=== PATIENT | female | born 1965 | race Caucasian/White ===

== ENCOUNTER 2023-04-21 23:52 | Emergency (ER) | payer OTHER, SELFPAY ==
[2023-04-22] VITALS (13 sets, daily range): BP systolic 142–155; BP diastolic 86–90; PULSE 93–105; RESP 7–22; TEMP 36.7; O2SAT 97–100; BMI 34.5
--- NOTE | 2023-04-22 00:37 | CT_ITS ---
[address] [address] Patient Name: LIZBETH ALEJANDRE MRN: [id number] date: 1965 Sex: F Assigned Patient Location: ER Current Patient Location: .[facility] Accession/Order Number: [id number] Exam Date: 04/22/2023 00:00 Report Date: 04/22/2023 01:16 At the request of: REINIER ALBARRAN Procedure: CT head/brain wo con INDICATION: 57 years old; Female. Vertigo. Nausea. Left arm is tingly . TECHNIQUE: CT Head (ax/cor/sag reformats). Ionizing radiation dose reduced via iterative reconstruction/FBP blend and body size kV/mA adjustment. Comparison: None FINDINGS: POSTOPERATIVE CHANGES: None. BRAIN PARENCHYMA: No focal lesions. No mass effect. No midline shift or herniation. No intraparenchymal or extra-axial hemorrhage. Normal singh/white differentiation. VENTRICLES/EXTRA-AXIAL SPACES: Normal for patient's age. SINUSES/MASTOIDS: The visualized sinuses are clear. Mastoid air cells are clear. MSK: No displaced or depressed calvarial fracture is noted. OTHER: No hyperdense intraluminal thrombus is seen. Vascular calcification is noted. There is a partially empty sella. CT/CT head/brain wo con IMPRESSION: 1. No acute intracranial abnormality. No hemorrhage or mass effect. If there is concern for infarction, then MRI with diffusion imaging would be more sensitive. 2. Vascular calcification. Electronically authenticated by: CONNIE SHANNON Date: 04/22/2023 01:16
--- NOTE | 2023-04-22 00:37 | ECG_ITS ---
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
--- NOTE | 2023-04-22 00:46 | ED.DIZZY1 ---
HPI - Dizziness General Chief Complaint: Dizziness Stated Complaint: DIZINESS Time Seen by Provider: 04/22/23 00:14 Source: patient Mode of arrival: Wheelchair Limitations: no limitations History of Present Illness HPI Narrative: The patient has a history of hypertension as well as hyperlipidemia presenting to us with a few hours history of sense of dizziness and room spinning that started before she went to sleep although when laying down the patient mentioned that the dizziness got worse and according to her she started feeling of the room spinning when she was asleep. The patient needed help to get out of the bed and walk because she was dizzy she also started having numbness and tingling in left hand, there was no chest pain at any time there was no sweating there was no any other preceding symptoms and the symptoms started while she was at rest No headache at any time, Related Data Home Medications Medication Instructions Recorded Confirmed lisinopril 5 mg tablet mg 04/22/23 simvastatin 20 mg tablet mg 04/22/23 Previous Rx's Medication Instructions Recorded meclizine 25 mg tablet 25 mg PO TID PRN dizziness #10 tabs 04/22/23 Allergies Allergy/AdvReac Type Severity Reaction Status Date / Time Sulfa (Sulfonamide Allergy Unknown Verified 04/22/23 00:44 Antibiotics) quinalones Allergy Unknown Uncoded 04/22/23 00:44 Review of Systems ROS Status of ROS 10 or more systems reviewed and unremarkable except as noted in history and below [facility] Social History Smoking status: Never smoker Exam Narrative Exam Narrative: Nurses notes and vital signs reviewed and patient is not hypoxic. General: Well-appearing and in no apparent distress. Skin: Warm, dry, no pallor noted. No rash. Head: Normocephalic, atraumatic. Neck: Supple, non-tender. Eye: Pupils are equal, round and EOMI. No scleral icterus. Ears, Nose, Mouth, and Throat: TM are clear, no nasal mucosal hypertrophy. Oral mucosa is moist, no posterior oropharynx erythema, uvula is mid-line Cardiovascular: Regular Rate and Rhythm without murmur, gallop or rub. Respiratory: No accessory muscle use or respiratory distress. Lungs are clear to auscultation, no wheezing, rales or rhonchi Chest Wall: no tenderness Back: No midline thoracic or lumbar vertebral tenderness. No CVA tenderness Musculoskeletal: normal ROM, no calf or popliteal tenderness, no lower extremity edema/swelling GI: Abdomen is soft, non-distended. Normal bowel sounds. No masses appreciated. No tenderness to palpation. No rebound, guarding, or rigidity noted. Neurological: A&O x4. No cranial nerve dysfunction observed. No truncal ataxia. Moves all extremities. Sensation intact. Psychiatric: Cooperative and interactive. Normal mood and affect. Constitutional Vital Signs, click to edit/add: Last Vital Signs Temp 98.1 F 04/22/23 00:35 Pulse 94 H 04/22/23 01:30 Resp 13 04/22/23 01:30 BP 142/90 H 04/22/23 01:32 Pulse Ox 100 04/22/23 01:30 O2 Del Method Room Air 04/22/23 00:48 Course Vital Signs Vital signs: Vital Signs Pulse Rate 101 H 04/22/23 00:27 Respiratory Rate 7 L 04/22/23 00:27 Blood Pressure 155/86 H 04/22/23 00:27 Pulse Oximetry 100 04/22/23 00:27 Temperature 98.1 F 04/22/23 00:35 Pulse Rate 94 H 04/22/23 01:30 Respiratory Rate 13 04/22/23 01:30 Blood Pressure 142/90 H 04/22/23 01:32 Pulse Oximetry 100 04/22/23 01:30 Oxygen Delivery Method Room Air 04/22/23 00:48 MDM - Dizziness MDM Narrative Medical decision making narrative: The EKG showing sinus rhythm with a heart rate of [address] elevation, there was no T wave inversion or any acute ischemic changes The patient CT head as well as the rest of her blood work-up showed no acute significant pathology except for the elevated BUN She was feeling much better in the ED after she was treated with meclizine and the patient was discharged home after the troponin the second set was negative The patient was discharged home with meclizine prescription in addition to hydration at the instruction and monitoring her symptoms, she is to come back to the ER in case of continuous symptoms after 2 days The patient is to follow up with primary care physician in next 2-3 days or to return to the emergency department should any of the signs or symptoms worsen or new symptoms develop. The patient agrees with the following Diagnosis and Treatment plan and the patient will be discharged home. Lab Data Labs: Lab Results 04/22/23 Range/Units 00:55 WBC 10.1 (4.0-11.0) 10^3/uL RBC 4.35 (4.20-5.40) 10^6/uL Hgb 13.2 (12.0-16.0) g/dL Hct 40.1 (36.0-48.0) % MCV 92.2 (81.0-99.0) fL MCH 30.3 (26.7-34.0) pg MCHC 32.9 (29.9-35.2) g/dL RDW 13.2 (11.0-15.0) % Plt Count 289 (150-450) 10^3/uL MPV 9.1 L (9.5-13.5) fL Neut % (Auto) 45.1 (43.0-75.0) % Lymph % (Auto) 41.8 (20.5-60.0) % Angelina % (Auto) 10.8 (1.7-12.0) % Eos % (Auto) 1.5 (0.9-7.0) % Baso % (Auto) 0.6 (0.2-2.0) % Neut # (Auto) 4.5 (1.4-6.5) 10^3/uL Lymph # (Auto) 4.2 H (1.2-3.8) 10^3/uL Angelina # (Auto) 1.1 H (0.3-0.8) 10^3/uL Eos # (Auto) 0.2 (0.0-0.7) 10^3/uL Baso # (Auto) 0.1 (0.0-0.1) 10^3/uL Abs Immat Gran (auto) 0.02 (0.00-0.03) 10^3/uL Imm/Tot Granulo (auto) 0.2 (0.0-0.5) % PT 9.9 (9.0-11.6) sec INR 0.93 Sodium 141 (136-145) mmol/L Potassium 3.8 (3.5-5.1) mmol/L Chloride 105 (98-107) mmol/L Carbon Dioxide 29.9 (21.0-32.0) mmol/L Anion Gap 9.9 BUN 19.0 H (7.0-18.0) mg/dL Creatinine 0.82 (0.55-1.02) mg/dL Est GFR ( Amer) >60 (>=60) Est GFR (Non-Af Amer) >60 (>=60) BUN/Creatinine Ratio 23.2 Glucose 153 H (74-106) mg/dL Calcium 9.0 (8.5-10.1) mg/dL Total Bilirubin 0.3 (0.2-1.0) mg/dL AST 16 (15-37) U/L ALT 26 (14-59) U/L Alkaline Phosphatase 74 (46-116) U/L Troponin I High Sens <4.0 L (4.0-51.3) pg/mL Total Protein 7.9 (6.4-8.2) g/dL Albumin 3.6 (3.4-5.0) g/dL Globulin 4.3 g/dL Albumin/Globulin Ratio 0.8 Discharge Plan Discharge Chief Complaint: Dizziness Clinical Impression: Vertigo Patient Disposition: Home, Self-Care Condition: Good Mode of Transportation: Private Vehicle Prescriptions / Home Meds: New meclizine 25 mg tablet 25 mg PO TID PRN (Reason: dizziness) Qty: 10 0RF No Action simvastatin 20 mg tablet lisinopril 5 mg tablet Instructions: Benign Paroxysmal Positional Vertigo (ED) Stand Alone Forms: Portal Instructions Referrals: Matthew Ness MD [Primary Care Provider] - 1 week
[2023-04-22 01:05] LABS: Basophils Absolute Auto 0.1 10^3/uL (0.0-0.1); Basophils Percent Auto 0.6 % (0.2-2.0); Eosinophils Absolute Auto 0.2 10^3/uL (0.0-0.7); Eosinophils Percent Auto 1.5 % (0.9-7.0); Hematocrit 40.1 % (36.0-48.0); Hemoglobin 13.2 g/dL (12.0-16.0); Immature Granulocytes Abs Auto 0.02 10^3/uL (0.00-0.03); Immature Granulocytes Pct Auto 0.2 % (0.0-0.5); Lymphocytes Absolute Auto 4.2 10^3/uL (1.2-3.8); Lymphocytes Percent Auto 41.8 % (20.5-60.0); Mean Corpuscular HGB Conc 32.9 g/dL (29.9-35.2); Mean Corpuscular Hemoglobin 30.3 pg (26.7-34.0); Mean Corpuscular Volume 92.2 fL (81.0-99.0); Mean Platelet Volume 9.1 fL (9.5-13.5); Monocytes Absolute Auto 1.1 10^3/uL (0.3-0.8); Monocytes Percent Auto 10.8 % (1.7-12.0); Neutrophils Absolute Auto 4.5 10^3/uL (1.4-6.5); Neutrophils Percent Auto 45.1 % (43.0-75.0); Platelet Count 289 10^3/uL (150-450); Red Blood Count 4.35 10^6/uL (4.20-5.40); Red Cell Distribution Width 13.2 % (11.0-15.0); White Blood Count 10.1 10^3/uL (4.0-11.0)
[2023-04-22 01:21] LABS: Alanine Aminotransferase 26 U/L (14-59); Albumin Globulin Ratio 0.8; Albumin Level 3.6 g/dL (3.4-5.0); Alkaline Phosphatase 74 U/L (46-116); Anion Gap 9.9; Aspartate Amino Transferase 16 U/L (15-37); BUN Creatinine Ratio 23.2; Bilirubin Total 0.3 mg/dL (0.2-1.0); Carbon Dioxide 29.9 mmol/L (21.0-32.0); Chloride 105 mmol/L (98-107); Estimated GFR (African America >60 (>=60); Estimated GFR (Non-African Ame >60 (>=60); Globulin 4.3 g/dL; Glucose 153 mg/dL (74-106); INR 0.93; Potassium 3.8 mmol/L (3.5-5.1); Prothrombin Time 9.9 sec (9.0-11.6); Sodium 141 mmol/L (136-145); Total Protein 7.9 g/dL (6.4-8.2); Troponin I High Sensitivity <4.0 pg/mL (4.0-51.3)
[2023-04-22] MEDS: MECLIZINE HCL 12.5 MG TABLET 25 MG PO (01:26)
[2023-04-22] MEDS: ONDANSETRON 4 MG RAPDIS TABLET SL (01:26)
[2023-04-22] MEDS: 0.9 % SODIUM CHLORIDE 1,000 ML 1000 ML IV (02:03)
[2023-04-22 02:50] LABS: Troponin I High Sensitivity 4.4 pg/mL (4.0-51.3)
== END 2023-04-22 03:12 | disposition home or self-care (01) ==
PROVIDERS: Emergency Provider Emergency Medicine; PCP Family Medicine
DX: R42 Dizziness and giddiness (principal); I10 Essential (primary) hypertension; E78.5 Hyperlipidemia, unspecified; Z79.899 Other long term (current) drug therapy
CPT/HCPCS: 36415; 70450; 80053; 84484; 85025; 85610; 93005; 99285

== ENCOUNTER 2025-03-20 02:13 | Emergency (ER) | payer OTHER, SELFPAY ==
[2025-03-20] VITALS (37 sets, daily range): BP systolic 142–208; BP diastolic 78–110; PULSE 81–100; TEMP 36.7; O2SAT 95–100; BMI 34.5
--- NOTE | 2025-03-20 02:21 | ECG_ITS ---
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
--- NOTE | 2025-03-20 02:21 | XR_ITS ---
The [place] [id number] Patient Name: LIZBETH ALEJANDRE MRN: [id number] date: 1965 Sex: F Assigned Patient Location: ED.MAIN Current Patient Location: Accession/Order Number: [id number] Exam Date: 03/20/2025 08:21 Report Date: 03/20/2025 08:22 At the request of: LASHAY VILLALOBOS MD Procedure: XR chest 1V PORTABLE AP ERECT CHEST 0224 hours CLINICAL HISTORY: chest and epigastric pain COMPARISON: None The heart is within normal limits. There is no vascular congestion. The lungs, as visualized, are clear. There is no effusion or pneumothorax. The osseous structures are intact. XR/XR chest 1V IMPRESSION: NO ACUTE FINDINGS Impression dictated by: Lily Gordon M.D. 03/20/2025 8:22 AM Dictation Location: [place] [address] Electronically authenticated by: [id number] Y Date: 03/20/2025 08:22
--- NOTE | 2025-03-20 02:23 | ED.GENADUL1 ---
HPI HPI - General Adult General Chief complaint: Chest Pain Stated complaint: CHEST PAIN Time Seen by Provider: 03/20/25 02:16 Source: patient Mode of arrival: walk-in Limitations: no limitations History of Present Illness HPI narrative: This 59-year-old female presents to the emergency department stating around midnight she developed epigastric pain radiating up into her chest and down the left arm. Pain is intermittent and she denies associated shortness of breath or diaphoresis, nausea or vomiting. She had chicken tenders and Yoruba fries to eat around 8 PM last night. There is a past history of hypertension but she states she started practicing holistic medication and using beet juice and cayenne which brought her blood pressure down. She does not have any history of heart problems. Related Data Home Medications ?Medication ?Instructions ?Recorded ?Confirmed No Known Home Medications 03/20/25 03/20/25 Allergies Allergy/AdvReac Type Severity Reaction Status Date / Time Sulfa (Sulfonamide Allergy Intermediate Rash Verified 03/20/25 02:24 Antibiotics) quinalones Allergy Severe Anaphylaxis Uncoded 03/20/25 02:24 Opioid HPI Opioid Management Most Recent Opioid Data: Last Pain Scale 0 Today, 02:17 PFSH PFSH Social History Smoking status: Never smoker Little interest or pleasure in doing things: not at all Feeling down, depressed, or hopeless: not at all Exam Narrative Exam Narrative: Patient is obese in appearance and is not in distress. She is currently asymptomatic. The blood pressure is elevated at 208/110. The rest of her vitals are stable. Skin is warm and dry. HEENT exam is normal to inspection. Neck is supple. Lung sounds are clear to auscultation bilaterally. Heart has a regular rate and rhythm. Abdomen is protuberant, soft and nontender. There is no tenderness in the epigastrium or right upper quadrant. She does not have unilateral leg swelling or pedal edema. Speech and mentation are clear and intact. There is no facial asymmetry. She moves all extremities actively. Constitutional Vital Signs, click to edit/add: Last Vital Signs Temp 98.0 F 03/20/25 02:17 Pulse 90 03/20/25 05:00 Resp 11 L 03/20/25 05:00 BP 145/83 H 03/20/25 05:00 Pulse Ox 95 03/20/25 05:00 O2 Del Method Room Air 03/20/25 02:17 Course Vital Signs Vital signs: Vital Signs Temperature 98.0 F 03/20/25 02:17 Pulse Rate 94 H 03/20/25 02:17 Respiratory Rate 18 03/20/25 02:17 Blood Pressure 208/110 H 03/20/25 02:17 Pulse Oximetry 100 03/20/25 02:17 Oxygen Delivery Method Room Air 03/20/25 02:17 Temperature 98.0 F 03/20/25 02:17 Pulse Rate 90 03/20/25 05:00 Respiratory Rate 11 L 03/20/25 05:00 Blood Pressure 145/83 H 03/20/25 05:00 Pulse Oximetry 95 03/20/25 05:00 Oxygen Delivery Method Room Air 03/20/25 02:17 Medical Decision Making MDM Narrative Medical decision making narrative: The twelve-lead EKG is interpreted by me and shows sinus rhythm at a rate of 90 bpm. The axis is normal. AL interval, QRS duration and QTc intervals are normal. There is near global ST depression which was present in her previous tracings from a few years ago also and is felt at this time to be a stable finding. 2 sets of troponins remain within normal limits. The patient's initial blood pressure was quite high but came down into the 160s over 80s range. She remains asymptomatic at this time. And is stable for discharge. There is no evidence of acute coronary injury at this time. She is advised early follow-up with PCP and is to return anytime for worsening symptoms. Lab Data Labs: Lab Results 03/20/25 03/20/25 Range/Units 02:30 04:33 WBC 11.1 H (4.0-11.0) 10^3/uL RBC 4.70 (4.20-5.40) 10^6/uL Hgb 14.2 (12.0-16.0) g/dL Hct 42.1 (36.0-48.0) % MCV 89.6 (81.0-99.0) fL MCH 30.2 (26.7-34.0) pg MCHC 33.7 (29.9-35.2) g/dL RDW 13.3 (11.0-15.0) % Plt Count 322 (150-450) 10^3/uL MPV 9.3 L (9.5-13.5) fL Neut % (Auto) 41.4 L (43.0-75.0) % Lymph % (Auto) 45.1 (20.5-60.0) % [place] % (Auto) 11.1 (1.7-12.0) % Eos % (Auto) 1.5 (0.9-7.0) % Baso % (Auto) 0.7 (0.2-2.0) % Neut # (Auto) 4.6 (1.4-6.5) 10^3/uL Lymph # (Auto) 5.0 H (1.2-3.8) 10^3/uL [place] # (Auto) 1.2 H (0.3-0.8) 10^3/uL Eos # (Auto) 0.2 (0.0-0.7) 10^3/uL Baso # (Auto) 0.1 (0.0-0.1) 10^3/uL Abs Immat Gran (auto) 0.02 (0.00-0.03) 10^3/uL Imm/Tot Granulo (auto) 0.2 (0.0-0.5) % Sodium 141 (136-145) mmol/L Potassium 3.6 (3.5-5.1) mmol/L Chloride 105 (98-107) mmol/L Carbon Dioxide 26.9 (21.0-32.0) mmol/L Anion Gap 12.7 BUN 19.0 H (7.0-18.0) mg/dL Creatinine 0.79 (0.55-1.02) mg/dL Est GFR ( Amer) >60 (>=60 mL/min/1.73m^2) Est GFR (Non-Af Amer) >60 (>=60 mL/min/1.73m^2) BUN/Creatinine Ratio 24.1 Glucose 129 H (74-106) mg/dL Calcium 9.6 (8.5-10.1) mg/dL Total Bilirubin 0.4 (0.2-1.0) mg/dL AST 18 (15-37) U/L ALT 32 (14-59) U/L Alkaline Phosphatase 98 (46-116) U/L Troponin I High Sens 4.4 4.3 (4.0-51.3) pg/mL NT-Pro-B Natriuret Pep 96.0 (<=900.0) pg/mL Total Protein 8.1 (6.4-8.2) g/dL Albumin 3.6 (3.4-5.0) g/dL Globulin 4.5 g/dL Albumin/Globulin Ratio 0.8 Lipase 50.0 (16.0-77.0) U/L Discharge Plan Discharge Chief Complaint: Chest Pain Clinical Impression: Atypical chest pain Patient Disposition: Home, Self-Care Time of Disposition Decision: 06:14 Condition: Good Mode of Transportation: Private Vehicle Prescriptions / Home Meds: No Action No Known Home Medications Print Language: Indonesian Instructions: Chest Pain (ED) Additional Instructions: Follow-up with your physician within the next couple days. Continue monitoring your blood pressure regularly. Return for worsening symptoms. Referrals: Matthew Ness MD [Primary Care Provider, Family Practice] - 1 week
[2025-03-20 02:43] LABS: Hematocrit 42.1 % (36.0-48.0); Hemoglobin 14.2 g/dL (12.0-16.0); Immature Granulocytes Abs Auto 0.02 10^3/uL (0.00-0.03); Immature Granulocytes Pct Auto 0.2 % (0.0-0.5); Lymphocytes Absolute Auto 5.0 10^3/uL (1.2-3.8); Mean Corpuscular HGB Conc 33.7 g/dL (29.9-35.2); Mean Corpuscular Hemoglobin 30.2 pg (26.7-34.0); Mean Corpuscular Volume 89.6 fL (81.0-99.0); Platelet Count 322 10^3/uL (150-450); Red Blood Count 4.70 10^6/uL (4.20-5.40); White Blood Count 11.1 10^3/uL (4.0-11.0)
[2025-03-20 03:06] LABS: Alanine Aminotransferase 32 U/L (14-59); Albumin Globulin Ratio 0.8; Albumin Level 3.6 g/dL (3.4-5.0); Alkaline Phosphatase 98 U/L (46-116); Anion Gap 12.7; Aspartate Amino Transferase 18 U/L (15-37); Blood Urea Nitrogen 19.0 mg/dL (7.0-18.0); Calcium 9.6 mg/dL (8.5-10.1); Carbon Dioxide 26.9 mmol/L (21.0-32.0); Chloride 105 mmol/L (98-107); Estimated GFR (African America >60 (>=60 mL/min/1.73m^2); Estimated GFR (Non-African Ame >60 (>=60 mL/min/1.73m^2); Globulin 4.5 g/dL; Glucose 129 mg/dL (74-106); Lipase 50.0 U/L (16.0-77.0); NT Pro B Type Natriuretic Pept 96.0 pg/mL (<=900.0); Potassium 3.6 mmol/L (3.5-5.1); Sodium 141 mmol/L (136-145); Total Protein 8.1 g/dL (6.4-8.2)
--- NOTE | 2025-03-20 05:09 | PC.NURSE ---
i informed this patient that we are still waiting on ct result to come back. this patient voices no concerns, needs and shows no signs of distress
--- NOTE | 2025-03-20 06:25 | PC.NURSE ---
i gave this patient verbal and paper discharge orders and this patient voices yes to understanding these. at time of discharge this patient voices no concerns, needs and shows no signs of distress
== END 2025-03-20 06:26 | disposition home or self-care (01) ==
PROVIDERS: Emergency Provider Emergency Medicine; PCP Family Medicine
DX: R07.89 Other chest pain (principal)
CPT/HCPCS: 36415; 71045; 80053; 83690; 83880; 84484; 85025; 93005; 99285